=== PATIENT | male | born 1965 | race Caucasian/White ===

== ENCOUNTER 2023-06-24 08:41 | Emergency (ER) | payer OTHER, SELFPAY ==
[2023-06-24 08:42] VITALS: BP 145/99
--- NOTE | 2023-06-24 09:47 | ED.GENMED ---
History of Present Illness
General
Chief Complaint: Eye Problems
Time Seen by Provider: 06/24/23 09:23
Travel History
Have you had any contact with someone who has COVID-19?: No
Do you have any symptoms of coronavirus? Fever > 100 degrees, chills, cough, shortness of breath, sore throat, loss of taste or smell, muscle aches, or headache?: No
History of Present Illness
History of Present Illness:
58-year-old male presents the emergency department for evaluation of persistent right eye redness for the past month. He has been seen twice by initially his eye doctor and then in urgent care and started on topical antibiotics, initially Polytrim
and then subsequently ofloxacin. He states the redness is worse after starting ofloxacin. He denies any eye pain or vision changes, does note itching and excessive tearing. No left eye symptoms. Does wear contacts but has not worn them in 1
month due to the symptoms. 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
Review of Systems
Review of Systems
Allergies reviewed?: Yes
All Other Systems: ROS reviewed and negative except as documented in HPI and ROS
Phy Exam
Physical Exam
Physical Exam:
GEN: Well appearing, NAD, WDWN
HEENT: Oral mucosa moist, no scleral icterus
Eyes: Significant right scleral injection with limbic flush, no ecchymosis. Watery nonpurulent discharge noted. No focal fluorescein uptake, no conjunctival or corneal foreign bodies noted. Negative Kasey sign.
Cardiac: Regular rate
Lung: No respiratory distress, no tachypnea
MSK: No gross deformity or injuries
Skin: Good color, no pallor or jaundice, no rashes
Neuro: AO x3, moves all extremities freely
Psych: Calm, cooperative
Course
Orders/Labs/Results
Orders:
Orders
06/24/23 09:59
Tetracaine HCl [Tetracaine 0.5% Ophthalmic Solution] 1 drop .ROUTE .STK-MED ONE
06/24/23 10:00
Fluorescein Sodium [Ful-Ruth] 1 mg .ROUTE .STK-MED ONE
Vital Signs
Initial and Last Documented VS:
Initial Vital Signs
Temp Pulse Resp BP Pulse Ox
97.6 F 93 18 145/99 98
06/24/23 08:42 06/24/23 08:42 06/24/23 08:42 06/24/23 08:42 06/24/23 08:42
Last Documented Vital Signs
Temp Pulse Resp BP Pulse Ox
97.6 F 93 18 145/99 98
06/24/23 08:42 06/24/23 08:42 06/24/23 08:42 06/24/23 08:42 06/24/23 08:42
MDM/Problems Addressed
MDM/Problems Addressed:
Visual acuity is grossly normal, he has no eye pain. No exam findings concerning for viral keratitis or bacterial keratitis. Do not feel this represents a bacterial condition at this time after 2 courses of antibiotics. Will try topical
antihistamines and recommend an eye doctor follow-up when he returns home to [facility]
*Critical Care Note
Total Time (30-74mins, 75-104mins- exclusive of procedures): Not Applicable
ED Attending Note
-
Portions of this chart may have been created with voice recognition software.� Occasional wrong word or��sound alike� substitutions may have occurred due to the inherent limitations of voice recognition software.
Discharge Plan
Departure
Patient Disposition: Home (Routine Discharge)
Date of Disposition: 06/24/23
Time of Disposition: 09:47
Patient with high blood pressure during this ER visit?: No
Discharge Problem:
Acute conjunctivitis of right eye
Instructions: Conjunctivitis (Noninfectious Pinkeye) (DC)
Prescriptions:
New
olopatadine 0.7 % drops
1 drp ophthalmic (eye) Q24H 10 Days Qty: 5 0RF
Referrals:
UNKNOWN - PT DOES,NOT KNOW [Family Provider] -
Interventions
Interventions:
*Risk Screen - Suicide Last Done: 06/24/23 08:42
*General Assessment Last Done: 06/24/23 08:42
*Neglect/Abuse Screening Last Done: 06/24/23 08:42
*Nursing Disposition Last Done: 06/24/23 10:07
Discharge Date and Time
Discharge Date/Time: 06/24/23 10:07
Print Language: [id number]
== END 2023-06-24 10:07 | disposition home or self-care (01) ==
LOC: EMR 08:41
PROVIDERS: EMERGENCY PHYSICIAN Emergency Medicine
DX: H10.31 Unspecified acute conjunctivitis, right eye (principal)
CPT/HCPCS: 99283